=== PATIENT | female | born 1995 | race Caucasian/White ===

== ENCOUNTER 2019-08-04 06:53 | Inpatient (IN) | payer BC ==
[2019-08-04] MEDS ORDERED: Nalbuphine 10 MG/ML Syringe IVPUSH PRN (07:10)
[2019-08-04] MEDS ORDERED: Sodium Chloride 0.9% 10 ML Syringe FLUSH PRN (07:10)
[2019-08-04] MEDS ORDERED: Ondansetron 4 MG/2 ML SDV IVPUSH PRN (07:10)
--- NOTE | 2019-08-04 07:14 | PCM.LDHP ---
L&D History of Present Illness - General Date of Service: 08/04/19 Admit Problem/Dx: Patient Status Order with Admit Dx/Problem 08/04/19 07:11 Patient Status [ADT] Routine Admission Diagnosis/Problem Admission Diagnosis/Problem Normal in third trimester Source of Information: Patient History Limitations: Reports: No Limitations - History of Present Illness Introduction:: Patient is a 24 y/o at 40 0/7 wks who presents for IOL. Doing well today. Good FM. 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: 1 LMP (Approximate): Psychiatric History: Reports: Anxiety - Past Surgical History HEENT Surgical History: Reports: Adenoidectomy, Myringotomy w Tube(s), Oral Surgery (tooth extraction), Tonsillectomy Female Surgical History: Reports: Cystectomy (Right sided) Social & Family History - Family History Family Medical History: Noncontributory - Tobacco Use Smoking Status *Q: Never Smoker - Caffeine Use Caffeine Use: Reports: None - Alcohol Use Alcohol Use History: No - Recreational Drug Use Recreational Drug Use: No H&P Review of Systems - Review of Systems: Review Of Systems: See Below General: Reports: No Symptoms Pulmonary: Reports: No Symptoms Cardiovascular: Reports: No Symptoms Gastrointestinal: Reports: No Symptoms Genitourinary: Reports: No Symptoms Musculoskeletal: Reports: No Symptoms Psychiatric: Reports: No Symptoms Neurological: Reports: No Symptoms L&D Exam - Exam Exam: See Below - OB Specific Contraction Intensity: Irritability Movement: Active Heart Tones: Present Heart Rate (FHR) Variability: Moderate (6-25 bmp) Presentation: Vertex - Bolaños Score Bolaños Score Cervix Position: Midposition Bolaños Score Consistency: Soft Bolaños Score Effacement: 51-70% Bolaños Score Dilation: 3-4 cm Bolaños Score 's Station: -2 Bolaños Score Total: 8 - Exam General: Alert, Oriented, Cooperative Lungs: Clear to Auscultation, Normal Respiratory Effort Cardiovascular: Regular Rate, Regular Rhythm GI/Abdominal Exam: Soft, Non-Tender Genitourinary: Normal external exam Extremities: Normal Inspection Skin: Warm, Dry, Intact - Problem List (1) 40 weeks gestation of SNOMED Code(s): 50594678 ICD Code: Z3A.40 - 40 WEEKS GESTATION OF Status: Acute Current Visit: Yes Problem List Initiated/Reviewed/Updated: Yes Orders Last 24hrs: Active Orders 24 hr Category Date Time Status Patient Status [ADT] Routine ADT 08/04/19 07:11 Ordered Communication Order [RC] ASDIRECTED Care 08/04/19 07:11 Ordered Communication Order [RC] ASDIRECTED Care 08/04/19 07:11 Ordered Communication Order [RC] ASDIRECTED Care 08/04/19 07:11 Ordered Heart Tones [RC] ASDIRECTED Care 08/04/19 07:11 Ordered Non Stress Test [RC] PER UNIT ROUTINE Care 08/04/19 07:11 Ordered Notify Provider [RC] ASDIRECTED Care 08/04/19 07:11 Ordered Notify Provider [RC] PRN Care 08/04/19 07:11 Ordered Peripheral IV Care [RC] . DIRECTED Care 08/04/19 07:11 Ordered Up ad Rossy [RC] ASDIRECTED Care 08/04/19 07:11 Ordered Vaginal Exam [RC] ASDIRECTED Care 08/04/19 07:11 Ordered Vital Signs [RC] ASDIRECTED Care 08/04/19 07:11 Ordered Regular Diet [DIET] Diet 08/04/19 Breakfast Ordered CBC W/O DIFF,HEMOGRAM [HEME] Routine Lab 08/04/19 07:10 Ordered RAPID PLASMA REAGIN,RPR [CHEM] Routine Lab 08/04/19 07:11 Ordered TYPE AND SCREEN [BBK] Routine Lab 08/04/19 07:10 Ordered Lactated Ringers [Ringers, Lactated] 1,000 ml Med 08/04/19 07:15 Ordered IV ASDIRECTED Nalbuphine [Nubain] Med 08/04/19 07:10 Ordered 10 mg IVPUSH Q2H PRN Ondansetron [Zofran] Med 08/04/19 07:10 Ordered 4 mg IVPUSH Q4H PRN Oxytocin/Lactated Ringers [Pitocin in LR 10 Units/1,000 Med 08/04/19 07:15 Ordered ML] 10 unit in 1,000 ml IV .CONTINUOUS Oxytocin/Lactated Ringers [Pitocin in LR 10 Units/1,000 Med 08/04/19 07:15 Ordered ML] 10 unit in 1,000 ml IV TITRATE Sodium Chloride 0.9% [Saline Flush] Med 08/04/19 07:10 Ordered 10 ml FLUSH ASDIRECTED PRN Electronic Heart Tones Ext w TOCO [WOMSER] Ot 08/04/19 07:11 Ordered Routine Electronic Heart Tones Internal [WOMSER] Per Unit Ot 08/04/19 07:11 Ordered Routine Peripheral IV Insertion Adult [OM.PC] Routine Ot 08/04/19 07:11 Ordered Resuscitation Status Routine Resus Stat 08/04/19 07:10 Ordered Medication Orders Lactated Ringer's (Ringers, Lactated) 1,000 mls @ 40 mls/hr IV ASDIRECTED ARYAN Oxytocin/Lactated Ringer's (Pitocin In Lr 10 Units/1,000 Ml) 10 unit in 1,000 mls @ 12 mls/hr IV TITRATE ARYAN; Protocol Oxytocin/Lactated Ringer's (Pitocin In Lr 10 Units/1,000 Ml) 10 unit in 1,000 mls @ 500 mls/hr IV .CONTINUOUS ARYAN Nalbuphine HCl (Nubain) 10 mg IVPUSH Q2H PRN PRN Reason: Pain Ondansetron HCl (Zofran) 4 mg IVPUSH Q4H PRN PRN Reason: Nausea/Vomiting Sodium Chloride (Saline Flush) 10 ml FLUSH ASDIRECTED PRN PRN Reason: Keep Vein Open Assessment/Plan Comment:: * Labs done * GBS negative * AROM and pitocin for IOL * Pain management per patient preference * Anticipate
[2019-08-04] MEDS ORDERED: Oxytocin/Lactated Ringers 10 UNIT/1,000 ML BAG IV SCH ×2 (07:15)
[2019-08-04] MEDS ORDERED: ePHEDrine 50 MG/ML SDV IVPUSH PRN (07:30)
[2019-08-04] MEDS ORDERED: diphenhydrAMINE 50 MG/ML SDV IVPUSH PRN (07:30)
[2019-08-04] MEDS ORDERED: fentaNYL 100 MCG/2 ML SDV EPIDUR PRN (07:30)
[2019-08-04] MEDS ORDERED: Bupivacaine/fentaNYL/NS 100 ML Bag EPIDUR PRN (07:30)
[2019-08-04] MEDS: Lactated Ringers 1,000 ML IV SCH ×3 (07:44→14:07)
--- NOTE | 2019-08-04 08:07 | PCM.PREANE ---
Preanesthetic Assessment - Procedure Proposed Procedure: adriano - Anesthesia/Transfusion/Family Hx Anesthesia History: Prior Anesthesia Without Reaction Family History of Anesthesia Reaction: No Transfusion History: No Prior Transfusion(s) - Review of Systems General: No Symptoms Pulmonary: No Symptoms Cardiovascular: No Symptoms Gastrointestinal: No Symptoms Neurological: No Symptoms Other: Reports: Throat Pain (slight ear infection at this time- no meds) - Physical Assessment Vital Signs: Last Vital Signs Temp 98.1 F 08/04/19 07:11 Pulse 100 08/04/19 07:11 Resp 14 08/04/19 07:11 BP 127/68 08/04/19 07:11 Pulse Ox 98 08/04/19 07:11 Height: 5 ft 7 in Weight: 88.904 kg ASA Class: 2 Mental Status: Alert & Oriented x3 Airway Class: Mallampati = 1 Dentition: Reports: Normal Dentition Thyro-Mental Finger Breadths: 3 Mouth Opening Finger Breadths: 3 ROM/Head Extension: Full Lungs: Clear to Auscultation, Normal Respiratory Effort Cardiovascular: Regular Rate, Regular Rhythm - Lab Values: Laboratory Last Values WBC 8.69 K/mm3 (3.98-10.04) 08/04/19 07:20 RBC 3.63 M/mm3 (3.98-5.22) L 08/04/19 07:20 Hgb 11.0 gm/dl (11.2-15.7) L 08/04/19 07:20 Hct 34.1 % (34.1-44.9) 08/04/19 07:20 MCV 93.9 fl (79.4-94.8) 08/04/19 07:20 MCH 30.3 pg (25.6-32.2) 08/04/19 07:20 MCHC 32.3 g/dl (32.2-35.5) 08/04/19 07:20 RDW Std Deviation 44.3 fL (36.4-46.3) 08/04/19 07:20 Plt Count 217 K/mm3 (182-369) 08/04/19 07:20 MPV 9.1 fl (9.4-12.3) L 08/04/19 07:20 - Allergies Allergies/Adverse Reactions: Allergies Allergy/AdvReac Type Severity Reaction Status Date / Time No Known Allergies Allergy Verified 01/14/16 06:38 - Blood Blood Available: No - Acknowledgements Anesthesia Type Planned: Epidural Pt an Appropriate Candidate for the Planned Anesthesia: Yes Alternatives and Risks of Anesthesia Discussed w Pt/Guardian: Yes Pt/Guardian Understands and Agrees with Anesthesia Plan: Yes PreAnesthesia Questionnaire HEENT History: Reports: Other (See Below) Other HEENT History: Ear tubes placed in childhood Cardiovascular History: Reports: None Respiratory History: Reports: None Gastrointestinal History: Reports: None Genitourinary History: Reports: None 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 Musculoskeletal History: Reports: None Neurological History: Reports: None Psychiatric History: Reports: Anxiety Endocrine/Metabolic History: Reports: None Dermatologic History: Reports: None - Infectious Disease History Infectious Disease History: Reports: None - Past Surgical History HEENT Surgical History: Reports: Adenoidectomy, Myringotomy w Tube(s), Oral Surgery (tooth extraction), Tonsillectomy Female Surgical History: Reports: Cystectomy (Right sided) - History Comment History Comment: and an iron pills - SUBSTANCE USE Smoking Status *Q: Never Smoker Tobacco Use Within Last Twelve Months: No Second Hand Smoke Exposure: No Days Per Week of Alcohol Use: 0 Recreational Drug Use History: No - HOME MEDS Home Medications: Home Meds Acetaminophen [Tylenol] 650 mg PO Q4H PRN #0 tablet 03/14/16 [Rx] Docusate Sodium [Colace] 100 mg PO BID PRN #0 cap 03/14/16 [Rx] Ibuprofen [IJD: Ibuprofen] 600 mg PO Q4H PRN #0 tablet 03/14/16 [Rx] - CURRENT (IN HOUSE) MEDS Current Meds: Current Medications Diphenhydramine HCl (Benadryl) 25 mg IVPUSH Q6H PRN PRN Reason: Itching Ephedrine Sulfate (Ephedrine Sulfate) 5 mg IVPUSH ASDIRECTED PRN PRN Reason: HYPOTENTSION Fentanyl (Sublimaze) 100 mcg EPIDUR Q3H PRN PRN Reason: Pain Fentanyl/Bupivacaine HCl (Fentanyl/Bupivacaine/Ns 2 Mcg-0.125% 100 Ml) 100 ml EPIDUR CONTINUOUS PRN PRN Reason: Pain Lactated Ringer's (Ringers, Lactated) 1,000 mls @ 40 mls/hr IV ASDIRECTED RAYAN Last Admin: 08/04/19 07:44 Dose: 40 mls/hr Oxytocin/Lactated Ringer's (Pitocin In Lr 10 Units/1,000 Ml) 10 unit in 1,000 mls @ 12 mls/hr IV TITRATE ARYAN; Protocol Last Admin: 08/04/19 07:46 Dose: 2 munits/min, 12 mls/hr Oxytocin/Lactated Ringer's (Pitocin In Lr 10 Units/1,000 Ml) 10 unit in 1,000 mls @ 500 mls/hr IV .CONTINUOUS ARYAN Nalbuphine HCl (Nubain) 10 mg IVPUSH Q2H PRN PRN Reason: Pain Ondansetron HCl (Zofran) 4 mg IVPUSH Q4H PRN PRN Reason: Nausea/Vomiting Sodium Chloride (Saline Flush) 10 ml FLUSH ASDIRECTED PRN PRN Reason: Keep Vein Open
[2019-08-04] MEDS ORDERED: Lidocaine 1.5% with EPINEPHrine 1:200,000 5 ML Amp ONE (09:00)
--- NOTE | 2019-08-04 16:53 | PCM.DEL ---
L & D Note - General Info Date of Service: 08/04/19 - Delivery Note Labor: Induced by ARM, Induced by Oxytocin Delivery Outcome: Livebirth Infant Delivery Method: Spontaneous Vaginal Delivery-Single Infant Delivery Mode: Spontaneous Presentation: Right Occiput Anterior (CLAUDIA) (compound presentation with hand) Nuchal Cord: Present, Reduced Anesthesia Type: Epidural Amniotic Fluid Description: Clear Episiotomy Type: None Laceration: None Placenta: Intact, Spontaneous Cord: 3 Vessels Estimated Blood Loss: 100 Resuscitation Needed: Yes [place]: Bulb Syringe, Stimulated, Warmed, [place] Used Delivery Comments (Free Text/Narrative):: Patient found to be complete and patient began pushing. With maternal pushing effort head delivered from CLAUDIA presentation. Nuchal present an reduced. With gentle downward traction the shoulders and body delivered. placed on maternal abdomen. Cord clamped and cut. Cord blood obtained. Placenta allowed time to separate and expelled intact. No lacerations noted - General Info Date of Service: 08/04/19 - Patient Data Vitals - Most Recent: Last Vital Signs Temp 36.7 C 08/04/19 07:11 Pulse 100 08/04/19 07:11 Resp 14 08/04/19 07:11 BP 127/68 08/04/19 07:11 Pulse Ox 98 08/04/19 07:11 Weight - Most Recent: 88.904 kg I&O - Last 24 Hours: Intake & Output 08/04/19 08/04/19 08/04/19 06:59 14:59 22:59 Output Total 500 Balance -500 Lab Results Last 24 Hours: Laboratory Results - last 24 hr 08/04/19 08/04/19 Range/Units 07:20 07:20 WBC 8.69 (3.98-10.04) K/mm3 RBC 3.63 L (3.98-5.22) M/mm3 Hgb 11.0 L (11.2-15.7) gm/dl Hct 34.1 (34.1-44.9) % MCV 93.9 (79.4-94.8) fl MCH 30.3 (25.6-32.2) pg MCHC 32.3 (32.2-35.5) g/dl RDW Std Deviation 44.3 (36.4-46.3) fL Plt Count 217 (182-369) K/mm3 MPV 9.1 L (9.4-12.3) fl Blood Type A POSITIVE Gel Antibody Screen Negative Med Orders - Current: Current Medications Diphenhydramine HCl (Benadryl) 25 mg IVPUSH Q6H PRN PRN Reason: Itching Ephedrine Sulfate (Ephedrine Sulfate) 5 mg IVPUSH ASDIRECTED PRN PRN Reason: HYPOTENTSION Fentanyl (Sublimaze) 100 mcg EPIDUR Q3H PRN PRN Reason: Pain Last Admin: 08/04/19 11:54 Dose: 100 mcg Fentanyl/Bupivacaine HCl (Fentanyl/Bupivacaine/Ns 2 Mcg-0.125% 100 Ml) 100 ml EPIDUR CONTINUOUS PRN PRN Reason: Pain Last Admin: 08/04/19 11:54 Dose: 100 ml Lactated Ringer's (Ringers, Lactated) 1,000 mls @ 40 mls/hr IV ASDIRECTED ARYAN Last Admin: 08/04/19 14:07 Dose: 40 mls/hr Oxytocin/Lactated Ringer's (Pitocin In Lr 10 Units/1,000 Ml) 10 unit in 1,000 mls @ 12 mls/hr IV TITRATE ARYAN; Protocol Last Titration: 08/04/19 12:02 Dose: 6 munits/min, 36 mls/hr Oxytocin/Lactated Ringer's (Pitocin In Lr 10 Units/1,000 Ml) 10 unit in 1,000 mls @ 500 mls/hr IV .CONTINUOUS ARYAN Nalbuphine HCl (Nubain) 10 mg IVPUSH Q2H PRN PRN Reason: Pain Ondansetron HCl (Zofran) 4 mg IVPUSH Q4H PRN PRN Reason: Nausea/Vomiting Sodium Chloride (Saline Flush) 10 ml FLUSH ASDIRECTED PRN PRN Reason: Keep Vein Open - Problem List & Annotations (1) 40 weeks gestation of SNOMED Code(s): 43333123 Code(s): Z3A.40 - 40 WEEKS GESTATION OF Status: Acute Current Visit: Yes (2) Vaginal delivery SNOMED Code(s): 561145274 Code(s): O80 - ENCOUNTER FOR FULL-TERM UNCOMPLICATED DELIVERY Status: Acute Current Visit: No - Problem List Review Problem List Initiated/Reviewed/Updated: Yes - My Orders Last 24 Hours: My Active Orders 08/04/19 07:10 Nalbuphine [Nubain] 10 mg IVPUSH Q2H PRN Ondansetron [Zofran] 4 mg IVPUSH Q4H PRN Sodium Chloride 0.9% [Saline Flush] 10 ml FLUSH ASDIRECTED PRN Resuscitation Status Routine 08/04/19 07:11 Patient Status [ADT] Routine Communication Order [RC] ASDIRECTED Communication Order [RC] ASDIRECTED Communication Order [RC] ASDIRECTED Heart Tones [RC] ASDIRECTED Non Stress Test [RC] PER UNIT ROUTINE Notify Provider [RC] ASDIRECTED Notify Provider [RC] PRN Peripheral IV Care [RC] . DIRECTED Up ad Rossy [RC] ASDIRECTED Vaginal Exam [RC] ASDIRECTED Vital Signs [RC] ASDIRECTED Electronic Heart Tones Ext w TOCO [WOMSER] Routine Electronic Heart Tones Internal [WOMSER] Per Unit Routine Peripheral IV Insertion Adult [OM.PC] Routine 08/04/19 07:15 Lactated Ringers [Ringers, Lactated] 1,000 ml IV ASDIRECTED Oxytocin/Lactated Ringers [Pitocin in LR 10 Units/1,000 ML] 10 unit in 1,000 ml IV .CONTINUOUS Oxytocin/Lactated Ringers [Pitocin in LR 10 Units/1,000 ML] 10 unit in 1,000 ml IV TITRATE 08/04/19 07:20 RAPID PLASMA REAGIN,RPR [CHEM] Routine 08/04/19 Breakfast Regular Diet [DIET] - Assessment Assessment:: PPD#0 - Plan Plan:: * Routine cares * Breast feeding * Discharge home in 1-2 days
[2019-08-04] MEDS ORDERED: Docusate Sodium 100 MG Cap PO PRN (17:20)
[2019-08-04] MEDS ORDERED: Benzocaine/Menthol 20%-0.5% Spray 56 GM Canister TOP PRN (17:20)
[2019-08-04] MEDS ORDERED: Acetaminophen 325 MG Tab PO PRN (17:20)
[2019-08-04] MEDS ORDERED: Ibuprofen 600 MG Tab PO PRN (17:20)
[2019-08-04] MEDS ORDERED: Witch Hazel Medicated Pads 40/Jar TOP PRN (17:20)
[2019-08-05 04:24] VITALS: BP 106/59
--- NOTE | 2019-08-05 09:47 | PCM.SN ---
- Free Text/Narrative Note: Post Progress Note PPD #1 Subjective: Doing well overall. Ambulating without difficulty. Lochia minimal. Voiding without difficulty. Tolerating regular diet without nausea or vomiting. Pain controlled without use of oral medications at this time. Breast-feeding with minimal difficulty. Objective: Vitals: Vital Signs - 24 hr 08/04/19 08/05/19 20:06 03:34 Temperature 36.8 C 36.6 C Pulse, 76 81 Peripheral Respiratory 14 14 Rate Blood Pressure 111/60 106/59 L O2 Sat by Pulse 97 97 Oximetry Physical Exam General: Alert and oriented, no acute distress Lungs: Clear to auscultation bilaterally Heart: Regular rate and rhythm Abdomen: Soft, minimal appropriate tenderness, non-distended, fundus midline, nontender, and at the umbilicus Extremities: No edema ASSESSMENT: 24-year-old female -0-0-2 s/p normal vaginal delivery PPD #1 PLAN: Doing well Breast-feeding with minimal difficulty. Assist as needed Lochia minimal. Continue to monitor for appropriate lochia. Continue routine care Anticipate discharge home today Steve Rivera MD 9:47 AM 08/05/2019 TeleHealth - TeleHealth Patient Service Facility: [facility]: [facility] Informed Consent: Telemedicine Audio/Visual Informed Consent: The risks, benefits, and alternatives to the telehealth visit were explained to the patient and the patient consented to this modality of care. The telehealth visit was carried out via a secure, web-based conferencing system. This telemedicine service was a real-time, two-way interactive video and communication between the patient and the provider. All the parties involved were identified and approved by the patient prior to the visit. Any physical exam was assisted by the patient. Unless noted otherwise, the provider was located at their usual clinic location , and the patient was at their place of residence. Patient identity was confirmed by having the patient state their name and date of . All communications with the patient (verbal, audiovisual, and written) were documented in the patients medical record per documentation standards.
--- NOTE | 2019-08-05 09:55 | PCM.DCSUM1 ---
Discharge Summary - Hospital Course Free Text/Narrative:: - Delivery Note Labor: Induced by ARM, Induced by Oxytocin Delivery Outcome: Livebirth Infant Delivery Method: Spontaneous Vaginal Delivery-Single Infant Delivery Mode: Spontaneous Presentation: Right Occiput Anterior (CLAUDIA) (compound presentation with hand) Nuchal Cord: Present, Reduced Anesthesia Type: Epidural Amniotic Fluid Description: Clear Episiotomy Type: None Laceration: None Placenta: Intact, Spontaneous Cord: 3 Vessels Estimated Blood Loss: 100 Resuscitation Needed: Yes [place]: Bulb Syringe, Stimulated, Warmed, [place] Used Delivery Comments (Free Text/Narrative):: Patient found to be complete and patient began pushing. With maternal pushing effort head delivered from CLAUDIA presentation. Nuchal present an reduced. With gentle downward traction the shoulders and body delivered. Infant placed on maternal abdomen. Cord clamped and cut. Cord blood obtained. Placenta allowed time to separate and expelled intact. No lacerations noted HPI Initial Comments: - Delivery Note Labor: Induced by ARM, Induced by Oxytocin Delivery Outcome: Livebirth Infant Delivery Method: Spontaneous Vaginal Delivery-Single Infant Delivery Mode: Spontaneous Presentation: Right Occiput Anterior (CLAUDIA) (compound presentation with hand) Nuchal Cord: Present, Reduced Anesthesia Type: Epidural Amniotic Fluid Description: Clear Episiotomy Type: None Laceration: None Placenta: Intact, Spontaneous Cord: 3 Vessels Estimated Blood Loss: 100 Resuscitation Needed: Yes [place]: Bulb Syringe, Stimulated, Warmed, [place] Used Delivery Comments (Free Text/Narrative):: Patient found to be complete and patient began pushing. With maternal pushing effort head delivered from CLAUDIA presentation. Nuchal present an reduced. With gentle downward traction the shoulders and body delivered. placed on maternal abdomen. Cord clamped and cut. Cord blood obtained. Placenta allowed time to separate and expelled intact. No lacerations noted Brief History: - Delivery Note. Labor: Induced by ARM, Induced by Oxytocin. Delivery Outcome: Livebirth. Delivery Method: Spontaneous Vaginal Delivery-Single. Delivery Mode: Spontaneous. Presentation: Right Occiput Anterior (CLAUDIA) (compound presentation with hand). Nuchal Cord: Present, Reduced. Anesthesia Type: Epidural. Amniotic Fluid Description: Clear. Episiotomy Type: None. Laceration: None. Placenta: Intact, Spontaneous. Cord: 3 Vessels. Estimated Blood Loss: 100. Resuscitation Needed : Yes. [place]: Bulb Syringe, Stimulated, Warmed, [place] Used. Delivery Comments (Free Text/Narrative):: Patient found to be complete and patient began pushing. With maternal pushing effort head delivered from CLAUDIA presentation. Nuchal present an reduced. With gentle downward traction the shoulders and body delivered. Infant placed on maternal abdomen. Cord clamped and cut. Cord blood obtained. Placenta allowed time to separate and expelled intact. No lacerations noted Diagnosis: Stroke: No - Discharge Data Discharge Date: 08/05/19 Discharge Disposition: Home, Self-Care 01 Condition: Good - Referral to Home Health Primary Care Physician: MARIO Dykes - Discharge Diagnosis/Problem(s) (1) 40 weeks gestation of SNOMED Code(s): 94293613 ICD Code: Z3A.40 - 40 WEEKS GESTATION OF Status: Acute Current Visit: Yes (2) Vaginal delivery SNOMED Code(s): 247398016 ICD Code: O80 - ENCOUNTER FOR FULL-TERM UNCOMPLICATED DELIVERY Status: Acute Current Visit: No - Patient Summary/Data Complications: None Consults: None Hospital Course: Vandana Stearns was admitted for elective induction of labor. On admission her cervix was dilated to 3-4 cm. She was GBS negative. She was given pitocin for induction of labor. She had artificial rupture membranes with return of clear fluid. She was given an epidural for anesthesia. She progressed to complete and began pushing. On 08/04/2019 she had a normal vaginal delivery of a live male at 16:39. Apgars of 8 and 9. Weight of 4240 g (9 pounds 5.6 ounces ). Her course was uneventful. Her pain was well controlled and she had minimal lochia. She was ambulating, tolerating a regular diet and voiding normally. She was breast-feeding with minimal difficulty. She was afebrile and her hematocrit was 34.1 on admission. She desired to be discharged home on the morning of PPD #1. Her blood type is A+. - Patient Instructions Diet: Regular Diet as Tolerated Activity: Apply Ice, As Tolerated Activity, Other: Nothing in the vagina for 6 weeks Driving: May Drive Today Showering/Bathing: May Shower Notify Provider of: Fever, Increased Pain, Swelling and Redness, Drainage, Nausea and/or Vomiting Other/Special Instructions: Please contact your physician's office if you have heavy vaginal bleeding enough to soak a pad in less than an hour for several hours. Monitor for any signs of an infection in the breasts with severe pain or redness of the breast. - Discharge Plan *PRESCRIPTION DRUG MONITORING PROGRAM REVIEWED*: Not Applicable *COPY OF PRESCRIPTION DRUG MONITORING REPORT IN PATIENT SANJU: Not Applicable Home Medications: Home Meds Iron 1 tab PO DAILY 08/04/19 [History] EMM523/Iron Fumarate/FA/DSS [ 19 Tablet] 1 each PO DAILY 08/04/19 [ History] Acetaminophen [Tylenol] 650 mg PO Q6H PRN tablet 08/05/19 [Rx] Benzocaine/Menthol [Dermoplast Pain Relief [place]] 1 spray TOP ASDIRECTED PRN canister 08/05/19 [Rx] Docusate Sodium [Colace] 100 mg PO BID PRN cap 08/05/19 [Rx] Ibuprofen [Motrin] 600 mg PO Q6H PRN tablet 08/05/19 [Rx] witch Sofie [Tucks] 1 pad TOP ASDIRECTED PRN pad 08/05/19 [Rx] Patient Handouts: and Self-Care, Care After Vaginal Delivery Referrals: Mami Patterson MD [Family Provider] - (Follow-up in 6 weeks for routine visit or earlier as needed for any other problems as they may arise.) - Discharge Summary/Plan Comment DC Time >30 min.: No - Patient Data Vitals - Most Recent: Last Vital Signs Temp 36.6 C 08/05/19 03:34 Pulse 81 08/05/19 03:34 Resp 14 08/05/19 03:34 BP 106/59 L 08/05/19 03:34 Pulse Ox 97 08/05/19 03:34 Weight - Most Recent: 88.904 kg I&O - Last 24 hours: Intake & Output 08/04/19 08/05/19 08/05/19 22:59 06:59 14:59 Output Total 500 Balance -500 Lab Results - Last 24 hrs: Laboratory Results - last 24 hr 08/04/19 Range/Units 07:20 RPR Non-reactive (NONREACTIVE) Med Orders - Current: Current Medications Acetaminophen (Tylenol) 650 mg PO Q4H PRN PRN Reason: mild pain or fever Benzocaine/Menthol (Dermoplast Pain Relief [place]) 0 gm TOP ASDIRECTED PRN PRN Reason: Perineal Comfort Measure Last Admin: 08/04/19 18:00 Dose: 1 can Docusate Sodium (Colace) 100 mg PO BID PRN PRN Reason: Constipation Ibuprofen (Motrin) 600 mg PO Q6H PRN PRN Reason: Mild pain or fever Witch Sofie (Tucks) 1 pad TOP ASDIRECTED PRN PRN Reason: Perineal Comfort Measure Last Admin: 08/04/19 17:59 Dose: 1 tub Discontinued Medications Diphenhydramine HCl (Benadryl) 25 mg IVPUSH Q6H PRN PRN Reason: Itching Ephedrine Sulfate (Ephedrine Sulfate) 5 mg IVPUSH ASDIRECTED PRN PRN Reason: HYPOTENTSION Fentanyl (Sublimaze) 100 mcg EPIDUR Q3H PRN PRN Reason: Pain Last Admin: 08/04/19 11:54 Dose: 100 mcg Fentanyl/Bupivacaine HCl (Fentanyl/Bupivacaine/Ns 2 Mcg-0.125% 100 Ml) 100 ml EPIDUR CONTINUOUS PRN PRN Reason: Pain Last Admin: 08/04/19 11:54 Dose: 100 ml Lactated Ringer's (Ringers, Lactated) 1,000 mls @ 40 mls/hr IV ASDIRECTED ARYAN Last Admin: 08/04/19 14:07 Dose: 40 mls/hr Oxytocin/Lactated Ringer's (Pitocin In Lr 10 Units/1,000 Ml) 10 unit in 1,000 mls @ 12 mls/hr IV TITRATE ARYAN; Protocol Last Titration: 08/04/19 16:40 Dose: 999 munits/min, 5,994 mls/hr Oxytocin/Lactated Ringer's (Pitocin In Lr 10 Units/1,000 Ml) 10 unit in 1,000 mls @ 500 mls/hr IV .CONTINUOUS ARYAN Last Admin: 08/04/19 17:16 Dose: 500 mls/hr Lidocaine/Epinephrine (Xylocaine-Mpf 1.5% W/Epinephrine 1:200,000) 5 ml .ROUTE .STK-MED ONE Stop: 08/04/19 09:01 Nalbuphine HCl (Nubain) 10 mg IVPUSH Q2H PRN PRN Reason: Pain Ondansetron HCl (Zofran) 4 mg IVPUSH Q4H PRN PRN Reason: Nausea/Vomiting Sodium Chloride (Saline Flush) 10 ml FLUSH ASDIRECTED PRN PRN Reason: Keep Vein Open
[2019-08-05 12:20] VITALS: PULSE 98
== END 2019-08-05 17:00 | disposition home or self-care (01) | DRG 560 ==
LOC: JD.OB 06:53 → OBSVTOIN 16:39 → JD.OB 16:39
PROVIDERS: ADMIT Obstetrics & Gynecology; ATTEND Obstetrics & Gynecology
PROC: 10E0XZZ Delivery of Products of Conception, External Approach (ICD-10-PCS; principal; 2019-08-04)
PROC: 10907ZC Drainage of Amniotic Fluid, Therapeutic from Products of Conception, Via Natural or Artificial Opening (ICD-10-PCS; 2019-08-04)
PROC: 3E0R3BZ Introduction of Anesthetic Agent into Spinal Canal, Percutaneous Approach (ICD-10-PCS; 2019-08-04)
PROC: 00HU33Z Insertion of Infusion Device into Spinal Canal, Percutaneous Approach (ICD-10-PCS; 2019-08-04)
DX: O48.0 Post-term pregnancy (principal); Z37.0 Single live birth; O69.81X0 Labor and delivery complicated by cord around neck, without compression, not applicable or unspecified; Z3A.40 40 weeks gestation of pregnancy
CPT/HCPCS: 01967; 36415; 51702; 59025; 59409; 85027; 86592; 86850; 86900; 86901; A9270-GY; J2590; J3010; J7120

== ENCOUNTER 2020-09-07 08:40 | Emergency (ER) | payer BC ==
--- NOTE | 2020-09-07 09:46 | EDM.PDOC ---
ED HPI GENERAL MEDICAL PROBLEM - General Chief Complaint: Abdominal Pain Stated Complaint: SINUS CONGESTION/ABD PAIN Time Seen by Provider: 09/07/20 08:55 Source of Information: Reports: Patient, Family History Limitations: Reports: No Limitations - History of Present Illness INITIAL COMMENTS - FREE TEXT/NARRATIVE: Patient presents from urgent care for evaluation of abdominal pain. She is approximately 6 weeks . This is her fourth she has 2 living children and had a miscarriage in July and currently is not complaining of any vaginal bleeding or vaginal discharge no fevers chills or sweats no nausea or vomiting. No diarrhea or constipation no burning pain or bloody urine. She mainly is here that she had a lot of sinus congestion developed on Wednesday and developed postnasal drainage and then developed a productive cough no bloody cough however noted. Non-smoker no history of any lung disease has had sinus and ear problems in the past. She had a tonsillectomy when she was a child along with the PE tubes placed when she was young. No allergies that are seasonal no allergies to medications. She feels like anytime she has been coughing hard now she has pain across the abdominal wall. Reproducible with palpation and movement and definitely hurts when she tries to do a sit up. She has not really tried any Tylenol or any medications [id number] for pain at present. No injury or fall noted. Denies any other deeper abdominal pain no flank pain. No extremity swelling. Tight is normal Covid is negative per visit at the urgent care and I discussed the case with the urgent care provider prior to arrival. 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 Middle Abdomen Pain Score (Numeric/FACES): 5 - Related Data Allergies Allergy/AdvReac Type Severity Reaction Status Date / Time No Known Allergies Allergy Verified 09/07/20 09:07 Home Meds: Home Meds Prenat 115/Iron Fum/Folic/Dss [ 19 Tablet] 1 each PO DAILY 08/04/19 [History] Amoxicillin 500 mg PO TID #21 capsule 09/07/20 [Rx] Past Medical History HEENT History: Reports: Impaired Vision, Sinusitis, Other (See Below) Other HEENT History: Ear tubes placed in childhood, wears eyeglasses. 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 Musculoskeletal History: Reports: None Neurological History: Reports: Head Trauma Psychiatric History: Reports: Anxiety Endocrine/Metabolic History: Reports: None Dermatologic History: Reports: None - Infectious Disease History Infectious Disease History: Reports: Chicken Pox - Past Surgical History HEENT Surgical History: Reports: Adenoidectomy, Myringotomy w Tube(s), Oral Surgery, Tonsillectomy Female Surgical History: Reports: Cystectomy - History Comment History Comment: and an iron pills Social & Family History - Family History Family Medical History: No Pertinent Family History - Tobacco Use Tobacco Use Status *Q: Never Tobacco User Second Hand Smoke Exposure: No - Caffeine Use Caffeine Use: Reports: None - Recreational Drug Use Recreational Drug Use: No ED ROS GENERAL - Review of Systems Review Of Systems: See Below Constitutional: Denies: Fever, Chills, Diaphoresis HEENT: Reports: Nose Pain, Rhinitis, Sinus Problem. Denies: Ear Pain, Eye Pain, Nosebleed, Throat Pain, Throat Swelling Respiratory: Reports: Cough. Denies: Shortness of Breath, Wheezing Cardiovascular: Denies: Chest Pain, Edema, Lightheadedness, Syncope GI/Abdominal: Reports: Abdominal Pain. Denies: Anorexia, Bloody Stool, Constipation, Diarrhea, Decreased Appetite, Distension, Hematemesis, Hematochezia, Melena, Nausea, Vomiting : Denies: Dysuria, Flank Pain, Frequency, Hematuria, Irregular Menses, Urinary Retention (No abnormal vaginal bleeding or vaginal discharge) Musculoskeletal: Denies: Neck Pain, Muscle Pain Neurological: Reports: No Symptoms. Denies: Dizziness, Headache Psychiatric: Reports: No Symptoms ED EXAM, GI/ABD - Physical Exam Exam: See Below Exam Limited By: No Limitations General Appearance: Alert, WD/WN, No Apparent Distress Eyes: Bilateral: Pale Conjunctiva Ears: Normal External Exam, Normal Canal, Normal TMs Nose: Normal Inspection, Nasal Tenderness, Nasal Swelling, Other Throat/Mouth: Normal Oropharynx Head: Atraumatic Neck: Normal Inspection, Lymphadenopathy (L), Lymphadenopathy (R) Respiratory/Chest: No Respiratory Distress, Lungs Clear, Normal Breath Sounds, No Accessory Muscle Use, Chest Non-Tender Cardiovascular: Normal Peripheral Pulses, Regular Rate, Rhythm, No Edema GI/Abdominal Exam: Normal Bowel Sounds, Soft, No Organomegaly, No Distention, No Mass, Tender. No: Distended (Reproducible abdominal wall tenderness especially with stress or strain of her abdominal musculature does not have any deeper pain no masses no distention deafly no McBurney's point tenderness the right lower quadrant pain is more diffuse generalized in the upper abdomen no pelvic pain.), Guarding, Rigid, Rebound, Abnormal Bowel Sounds Extremities: No Pedal Edema Neurological: Alert, Oriented, CN II-XII Intact Psychiatric: Normal Affect Course - Vital Signs Text/Narrative:: I believe this is more of a muscular strain of her abdominal wall and is not having any pelvic cramping no vaginal discharge or bleeding or lightheadedness no fevers seems very unlikely acute appendicitis or cholecystitis no urinary symptoms doubt urinary tract infection seen by get onset of symptoms started with coughing and sinus congestion. We will have her start with [id number] remedies we will give her a prescription for Flonase, Tylenol for pain Robitussin for cough may try Benadryl if needed for congestion otherwise abdominal binder to see if that helps to prevent the strain of her muscles when she coughs and moves. Reviewed abdominal pain return precautions especially if any vaginal bleeding abdominal cramping fevers vomiting loss of appetite or multifocal pain. Last Recorded V/S: Last Vital Signs Temp 98.2 F 09/07/20 10:00 Pulse 77 09/07/20 10:00 Resp 16 09/07/20 10:00 BP 114/67 09/07/20 10:00 Pulse Ox 97 09/07/20 10:00 Departure - Departure Time of Disposition: 10:00 Disposition: Home, Self-Care 01 Condition: Good Clinical Impression: Abdominal pain Qualifiers: Abdominal location: generalized Qualified Code(s): R10.84 - Generalized abdominal pain Sinusitis, acute Qualifiers: Sinusitis location: unspecified location Recurrence: non-recurrent Qualified Code(s): J01.90 - Acute sinusitis, unspecified - Discharge Information Prescriptions: Amoxicillin 500 mg PO TID #21 capsule Instructions: Sinusitis, Adult, [id number], Abdominal Pain, Adult, [id number], Abdominal Pain During Referrals: Sonia Aponte PA-C [Primary Care Provider] - Forms: ED Department Discharge Additional Instructions: May use Tylenol for pain abdominal binder to help to decrease the pain and strain of coughing and bending and straining. Try to avoid excessive bending lifting and straining. Robitussin for the cough, may try Benadryl for the congestion I do recommend Flonase 1 to 2 sprays each nostril at least once a day as you have inflammation of your sinus passages. Drink plenty of water and fluids. Follow-up with your primary care physician and her B[employer]LING [employer] DESK CLERK. Return if any increasing pain, vomiting, fevers, vaginal bleeding, cramping, vaginal discharge, loss of appetite or any worsening symptoms. Start amoxicillin 500 mg 3 times a day for 10 days if not getting better with your sinus congestion cough and upper respiratory infection symptoms. Sepsis Event Note (ED) - Evaluation Sepsis Screening Result: No Definite Risk - Focused Exam Vital Signs: Vital Signs Temp Pulse Resp BP Pulse Ox 09/07/20 10:00 98.2 F 77 16 114/67 97 09/07/20 08:55 99.4 F 78 16 113/69 98
[2020-09-07 10:11] VITALS: BP 114/67; PULSE 77
== END 2020-09-07 10:00 | disposition home or self-care (01) ==
LOC: JD.ED 08:40
DX: O99.891 Other specified diseases and conditions complicating pregnancy (principal); R10.84 Generalized abdominal pain; O99.511 Diseases of the respiratory system complicating pregnancy, first trimester; J01.90 Acute sinusitis, unspecified; Z3A.01 Less than 8 weeks gestation of pregnancy
CPT/HCPCS: 99283

== ENCOUNTER 2021-04-30 01:36 | Inpatient (IN) | payer BC ==
[2021-04-30] MEDS ORDERED: Lidocaine 1% 50 ML MDV INJECT ONE (01:46)
[2021-04-30] MEDS ORDERED: Nalbuphine 10 MG/1 ML Vial IVPUSH PRN (01:46)
[2021-04-30] MEDS ORDERED: Ondansetron 4 MG/2 ML SDV IVPUSH PRN (01:46)
[2021-04-30] MEDS ORDERED: Lactated Ringers 1,000 ML IV SCH (02:00)
[2021-04-30] MEDS ORDERED: Oxytocin/Lactated Ringers 10 UNIT/1,000 ML BAG IV SCH (02:00)
[2021-04-30] MEDS ORDERED: Oxytocin 10 Units/1 ML SDV ONE (02:13)
--- NOTE | 2021-04-30 02:27 | PCM.LDHP ---
L&D History of Present Illness - General Date of Service: 04/30/21 Admit Problem/Dx: Patient Status Order with Admit Dx/Problem 04/30/21 01:46 Patient Status [ADT] Routine Admission Diagnosis/Problem Admission Diagnosis/Problem Active labor Source of Information: Patient History Limitations: Reports: No Limitations - History of Present Illness Introduction:: Patient is a 26 y/o at 39 5/7 wks who presented to L&D complete with BBOW. Contractions started at 2200. Worse the last hour. - Related Data Allergies/Adverse Reactions: Allergies Allergy/AdvReac Type Severity Reaction Status Date / Time No Known Allergies Allergy Verified 04/30/21 05:42 Home Medications: Home Meds Prenat 115/Iron Fum/Folic/Dss [ 19 Tablet] 1 each PO DAILY 08/04/19 [History] Ondansetron [Zofran] 1 tab PO DAILY 04/30/21 [History] Sertraline HCl [Zoloft] 1 tab PO DAILY 04/30/21 [History] Past Medical History HEENT History: Reports: Impaired Vision, Sinusitis, Other (See Below) Other HEENT History: Ear tubes placed in childhood, wears eyeglasses. 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: , Spontaneous : 4 Para: 2 LMP (Approximate): Neurological History: Reports: Head Trauma Psychiatric History: Reports: Anxiety - Infectious Disease History Infectious Disease History: Reports: Chicken Pox - Past Surgical History HEENT Surgical History: Reports: Adenoidectomy, Myringotomy w Tube(s), Oral Surgery, Tonsillectomy Female Surgical History: Reports: Cystectomy Social & Family History - Family History Family Medical History: No Pertinent Family History - Tobacco Use Tobacco Use Status *Q: Never Tobacco User - Caffeine Use Caffeine Use: Reports: None - Alcohol Use Alcohol Use History: No - Recreational Drug Use Recreational Drug Use: No H&P Review of Systems - Review of Systems: Review Of Systems: See Below General: Reports: No Symptoms Pulmonary: Reports: No Symptoms Cardiovascular: Reports: No Symptoms Gastrointestinal: Reports: Abdominal Pain Genitourinary: Reports: No Symptoms Musculoskeletal: Reports: No Symptoms Psychiatric: Reports: No Symptoms Neurological: Reports: No Symptoms L&D Exam - Exam Exam: See Below - OB Specific Contraction Intensity: Strong Movement: Active Heart Tones: Present Heart Tones per Min: 150 Heart Rate (FHR) Variability: Moderate (6-25 bpm) Presentation: Vertex - Bolaños Score Bolaños Score Cervix Position: Anterior Bolaños Score Consistency: Soft Bolaños Score Effacement: >80% Bolaños Score Dilation: > 5 cm Bolaños Score 's Station: -1 ,0 Bolaños Score Total: 12 - Exam General: Alert, Oriented, Cooperative Lungs: Clear to Auscultation, Normal Respiratory Effort Cardiovascular: Regular Rate, Regular Rhythm GI/Abdominal Exam: Soft, Non-Tender Genitourinary: Normal external exam Extremities: Normal Inspection Skin: Warm, Dry, Intact - Problem List (1) 39 weeks gestation of SNOMED Code(s): 01024286 ICD Code: Z3A.39 - 39 WEEKS GESTATION OF Status: Acute Current Visit: No Problem List Initiated/Reviewed/Updated: Yes Orders Last 24hrs: Active Orders 24 hr Category Date Time Status Patient Status [ADT] Routine ADT 04/30/21 01:46 Active Activity as Tolerated [RC] PFP Care 04/30/21 01:46 Active Communication Order [RC] ASDIRECTED Care 04/30/21 01:46 Active Heart Tones [RC] ASDIRECTED Care 04/30/21 01:46 Active Non Stress Test [RC] PER UNIT ROUTINE Care 04/30/21 01:46 Active Notify Provider [RC] PFP Care 04/30/21 01:46 Active Notify Provider [RC] PRN Care 04/30/21 01:46 Active Peripheral IV Care [RC] . DIRECTED Care 04/30/21 01:46 Active Pump Management, Intrathecal [RC] ASDIRECTED Care 04/30/21 01:47 Active Urinary Catheter Assessment [RC] ASDIRECTED Care 04/30/21 01:46 Active Vital Signs [RC] PER UNIT ROUTINE Care 04/30/21 01:46 Active Regular Diet [DIET] Diet 04/30/21 Breakfast Active BLOOD BANK HOLD SPECIMEN [BBK] Stat Lab 04/30/21 01:46 Ordered CBC WITH AUTO DIFF [HEME] Stat Lab 04/30/21 01:46 Ordered CORONAVIRUS COVID-19 CHRIS [MOLEC] Stat Lab 04/30/21 01:49 Ordered RAPID PLASMA REAGIN,RPR [CHEM] Routine Lab 04/30/21 01:46 Ordered Lactated Ringers [Ringers, Lactated] 1,000 ml Med 04/30/21 02:00 Active IV ASDIRECTED Nalbuphine [Nubain] Med 04/30/21 01:46 Active 10 mg IVPUSH Q2H PRN Ondansetron [Zofran] Med 04/30/21 01:46 Active 4 mg IVPUSH Q4H PRN Oxytocin/Lactated Ringers [Pitocin in LR 10 Units/1,000 Med 04/30/21 02:00 Active ML] 10 unit in 1,000 ml IV .CONTINUOUS Sodium Chloride 0.9% [Saline Flush] Med 04/30/21 09:00 Active 10 ml FLUSH 0900,2100 Electronic Heart Tones Ext w TOCO [WOMSER] Oth 04/30/21 01:46 Ordered Routine Electronic Heart Tones Internal [WOMSER] Per Unit Ot 04/30/21 01:46 Ordered Routine Peripheral IV Insertion Adult [OM.PC] Routine Ot 04/30/21 01:46 Ordered Resuscitation Status Routine Resus Stat 04/30/21 01:46 Ordered Medication Orders Oxytocin/Lactated Ringer's (Pitocin In Lr 10 Units/1,000 Ml) 10 unit in 1,000 m ls @ 500 mls/hr IV .CONTINUOUS ARYAN Lactated Ringer's (Ringers, Lactated) 1,000 mls @ 100 mls/hr IV ASDIRECTED ARYAN Nalbuphine HCl (Nalbuphine 10 Mg/1 Ml Vial) 10 mg IVPUSH Q2H PRN PRN Reason: Pain Ondansetron HCl (Ondansetron 4 Mg/2 Ml Sdv) 4 mg IVPUSH Q4H PRN PRN Reason: Nausea/Vomiting Sodium Chloride (Sodium Chloride 0.9% 10 Ml Syringe) 10 ml FLUSH 0900,2100 [facility] Assessment/Plan Comment:: Presents to L&D complete with BBOW . GBS negative . AROM done . Delivery imminent
--- NOTE | 2021-04-30 02:29 | PCM.DEL ---
L & D Note - General Info Date of Service: 04/30/21 - Delivery Note Labor: Spontaneous Delivery Outcome: Livebirth Delivery Method: Spontaneous Vaginal Delivery-Single Delivery Mode: Spontaneous Presentation: Right Occiput Anterior (CLAUDIA) Nuchal Cord: Present, Reduced Anesthesia Type: None Amniotic Fluid Description: Clear Episiotomy Type: None Laceration: None Placenta: Intact, Spontaneous Cord: 3 Vessels Estimated Blood Loss: 100 Resuscitation Needed: Yes : Bulb Syringe, Stimulated, Warmed, [place] Used, Warmer Used Delivery Comments (Free Text/Narrative):: Patient found to be complete and began pushing. With maternal pushing effort head delivered from an CLAUDIA presentation. Nuchal cord present and reduced. With gentle downward traction the shoulders and body delivered. placed on maternal abdomen. Cord clamped and cut. Cord blood obtained. P lacenta allowed time to separate and expelled intact. Inspection of perineum with no lacerations - General Info Date of Service: 04/30/21 - Problem List & Annotations (1) 39 weeks gestation of SNOMED Code(s): 46966716 Code(s): Z3A.39 - 39 WEEKS GESTATION OF Status: Acute Current Visit: No (2) Vaginal delivery SNOMED Code(s): 108657220 Code(s): O80 - ENCOUNTER FOR FULL-TERM UNCOMPLICATED DELIVERY Status: Acute Current Visit: No - Problem List Review Problem List Initiated/Reviewed/Updated: Yes - My Orders Last 24 Hours: My Active Orders 04/30/21 01:46 Patient Status [ADT] Routine Activity as Tolerated [RC] PFP Communication Order [RC] ASDIRECTED Heart Tones [RC] ASDIRECTED Non Stress Test [RC] PER UNIT ROUTINE Notify Provider [RC] PFP Notify Provider [RC] PRN Peripheral IV Care [RC] . DIRECTED Urinary Catheter Assessment [RC] ASDIRECTED Vital Signs [RC] PER UNIT ROUTINE BLOOD BANK HOLD SPECIMEN [BBK] Stat CBC WITH AUTO DIFF [HEME] Stat RAPID PLASMA REAGIN,RPR [CHEM] Routine Nalbuphine [Nubain] 10 mg IVPUSH Q2H PRN Ondansetron [Zofran] 4 mg IVPUSH Q4H PRN Electronic Heart Tones Ext w TOCO [WOMSER] Routine Electronic Heart Tones Internal [WOMSER] Per Unit Routine Peripheral IV Insertion Adult [OM.PC] Routine Resuscitation Status Routine 04/30/21 01:47 Pump Management, Intrathecal [RC] ASDIRECTED 04/30/21 01:49 CORONAVIRUS COVID-19 CHRIS [MOLEC] Stat 04/30/21 02:00 Lactated Ringers [Ringers, Lactated] 1,000 ml IV ASDIRECTED Oxytocin/Lactated Ringers [Pitocin in LR 10 Units/1,000 ML] 10 unit in 1,000 ml IV .CONTINUOUS 04/30/21 02:27 Patient Status Manage Transfer [TRANSFER] Routine 04/30/21 Breakfast Regular Diet [DIET] 04/30/21 09:00 Sodium Chloride 0.9% [Saline Flush] 10 ml FLUSH 0900,2100 - Assessment Assessment:: PPD#0 - Plan Plan:: * Routine cares * Breast feeding * Discharge in 1-2 days
[2021-04-30] MEDS ORDERED: Docusate Sodium 100 MG Cap PO PRN (03:00)
[2021-04-30] MEDS ORDERED: Benzocaine/Menthol 20%-0.5% Spray 78 GM Cannister TOP PRN (03:00)
[2021-04-30] MEDS ORDERED: Witch Hazel Medicated Pads 40/Jar TOP PRN (03:00)
[2021-04-30] MEDS ORDERED: Acetaminophen 325 MG Tab PO PRN (03:00)
[2021-04-30] MEDS ORDERED: Sodium Chloride 0.9% 10 ML Syringe FLUSH SCH (09:00)
[2021-04-30] MEDS: Sertraline 50 MG Tab PO SCH (09:33)
[2021-04-30] MEDS: Ibuprofen 600 MG Tab PO PRN ×2 (09:33→21:05)
--- NOTE | 2021-05-01 02:15 | PCM.PNPP ---
- General Info Date of Service: 05/01/21 Functional Status: Reports: Pain Controlled, Tolerating Diet, Ambulating, Urinating - Review of Systems General: Reports: No Symptoms Pulmonary: Reports: No Symptoms Cardiovascular: Reports: No Symptoms Gastrointestinal: Reports: No Symptoms Genitourinary: Reports: No Symptoms Musculoskeletal: Reports: No Symptoms Neurological: Reports: No Symptoms - General Info Date of Service: 05/01/21 - Patient Data Vital Signs - Most Recent: Last Vital Signs Temp 36.4 C 04/30/21 20:30 Pulse 83 04/30/21 20:30 Resp 14 04/30/21 20:30 BP 126/67 04/30/21 20:30 Pulse Ox 96 04/30/21 20:30 Weight - Most Recent: 86.954 kg I&O - Last 24 Hours: Intake & Output 04/30/21 04/30/21 05/01/21 14:59 22:59 06:59 Intake Total 240 Balance 240 Lab Results - Last 24 Hours: - Infant Interaction Infant Disposition, : in Room with Family Infant Interaction: Holding Feeding: Breastfed ; Nursed Well Support Person: - Recovery Exam Fundal Tone: Firm Fundal Level: 2 Fingerbreadths Below Umbilicus Fundal Placement: Midline Lochia Amount: Scant Lochia Color: Rubra/Red Perineum Description: Intact, Minimal Bruising/Swelling Episiotomy/Laceration: None Bladder Status: Voiding Urinary Elimination: Voided - Exam General: Alert, Oriented, Cooperative GI/Abdominal Exam: Soft, Non-Tender - Problem List & Annotations (1) 39 weeks gestation of SNOMED Code(s): 61327451 Code(s): Z3A.39 - 39 WEEKS GESTATION OF Status: Acute Current Visit: No (2) Vaginal delivery SNOMED Code(s): 109295742 Code(s): O80 - ENCOUNTER FOR FULL-TERM UNCOMPLICATED DELIVERY Status: Acute Current Visit: No - Problem List Review Problem List Initiated/Reviewed/Updated: Yes - My Orders Last 24 Hours: My Active Orders 04/30/21 01:46 BLOOD BANK HOLD SPECIMEN [BBK] Stat Resuscitation Status Routine 04/30/21 03:00 Acetaminophen [TylenoL] 650 mg PO Q4H PRN Benzocaine/Menthol [Dermoplast Pain Relief 20%-0.5% [place]] See Dose Instructions TOP ASDIRECTED PRN Docusate Sodium [Colace] 100 mg PO BID PRN Ibuprofen [Motrin] 600 mg PO Q6H PRN witch Melissa [Tucks] 1 pad TOP ASDIRECTED PRN Heat Therapy [OM.PC] PRN 04/30/21 03:00 Activity as Tolerated [RC] PER UNIT ROUTINE Vital Signs [RC] 03,,15,21 Assess Lochia [WOMSER] Per Unit Routine Assess Uterine Involution [WOMSER] Per Unit Routine Breast Pump [WOMSER] Per Unit Routine Ice Therapy [OM.PC] Per Unit Routine Perineal Care [OM.PC] Per Unit Routine Peripheral IV Discontinue [OM.PC] Routine Sitz Bath [OM.PC] Per Unit Routine 04/30/21 Breakfast Regular Diet [DIET] 04/30/21 09:00 Sertraline [Zoloft] 50 mg PO DAILY 05/01/21 02:14 Ready for Discharge [RC] PER UNIT ROUTINE 05/01/21 03:00 Heat Therapy [OM.PC] PRN - Assessment Assessment:: PPD#1 - Plan Plan:: * Routine cares * Breast feeding * Discharge today
--- NOTE | 2021-05-01 02:15 | PCM.DCSUM1 ---
Discharge Summary - Discharge Data Discharge Date: 05/01/21 Discharge Disposition: Home, Self-Care 01 Condition: Good - Referral to Home Health Primary Care Physician: Mami Patterson MD - Discharge Diagnosis/Problem(s) (1) 39 weeks gestation of SNOMED Code(s): 08636756 ICD Code: Z3A.39 - 39 WEEKS GESTATION OF Status: Acute Current Visit: No (2) Vaginal delivery SNOMED Code(s): 580953773 ICD Code: O80 - ENCOUNTER FOR FULL-TERM UNCOMPLICATED DELIVERY Status: Acute Current Visit: No - Patient Summary/Data Complications: None Consults: None Recommended Follow-up Testing/Procedures: Follow up in 3 weeks for check Hospital Course: 26 y/o at 39 5/7 wks who presented in labor. Underwent uncomplicated . See delivery note. did well. Was discharged home on PPD#1 - Patient Instructions Diet: Regular Diet as Tolerated Activity: As Tolerated Activity, Other: Pelvic rest for 6 weeks Driving: May Drive Today Showering/Bathing: May Shower Showering/Bathing, Other: May Bathe Notify Provider of: Fever, Increased Pain, Swelling and Redness, Drainage, Nausea and/or Vomiting - Discharge Plan *PRESCRIPTION DRUG MONITORING PROGRAM REVIEWED*: No *COPY OF PRESCRIPTION DRUG MONITORING REPORT IN PATIENT SANJU: No Home Medications: Home Meds Prenat 115/Iron Fum/Folic/Dss [ 19 Tablet] 1 each PO DAILY 08/04/19 [History] Docusate Sodium [Colace] 100 mg PO BID PRN cap 04/30/21 [Rx] Ibuprofen [Motrin] 600 mg PO Q6H PRN tablet 04/30/21 [Rx] Sertraline HCl [Zoloft] 1 tab PO DAILY 04/30/21 [History] Referrals: Mami Patterson MD [Primary Care Provider] - (3 weeks for check ) - Discharge Summary/Plan Comment DC Time >30 min.: No Total # of Minutes for Discharge Time: 15 - Patient Data Vitals - Most Recent: Last Vital Signs Temp 36.4 C 04/30/21 20:30 Pulse 83 04/30/21 20:30 Resp 14 04/30/21 20:30 BP 126/67 04/30/21 20:30 Pulse Ox 96 01/12/22 20:30 Weight - Most Recent: 86.954 kg I&O - Last 24 hours: Intake & Output 04/30/21 04/30/21 05/01/21 14:59 22:59 06:59 Intake Total 240 Balance 240 Lab Results - Last 24 hrs: Laboratory Results - last 24 hr 04/30/21 04/30/21 04/30/21 Range/Units 03:40 10:10 10:10 WBC 13.19 H (3.98-10.04) K/mm3 RBC 3.79 L (3.98-5.22) M/mm3 Hgb 12.0 (11.2-15.7) gm/dl Hct 36.1 (34.1-44.9) % MCV 95.3 H (79.4-94.8) fl MCH 31.7 (25.6-32.2) pg MCHC 33.2 (32.2-35.5) g/dl RDW Std Deviation 43.2 (36.4-46.3) fL Plt Count 145 L (182-369) K/mm3 MPV 10.1 (9.4-12.3) fl Neut % (Auto) 82.8 H (34.0-71.1) % Lymph % (Auto) 11.8 L (19.3-51.7) % [place] % (Auto) 4.8 (4.7-12.5) % Eos % (Auto) 0.1 L (0.7-5.8) Baso % (Auto) 0.2 (0.1-1.2) % Neut # (Auto) 10.93 H (1.56-6.13) K/mm3 Lymph # (Auto) 1.56 (1.18-3.74) K/mm3 [place]rill # (Auto) 0.63 H (0.24-0.36) K/mm3 Eos # (Auto) 0.01 L (0.04-0.36) K/mm3 Baso # (Auto) 0.02 (0.01-0.08) K/mm3 RPR Non-reactive (NONREACTIVE) SARS-CoV-2 RNA (CHRIS) Negative (NEGATIVE) Med Orders - Current: Current Medications Acetaminophen (Acetaminophen 325 Mg Tab) 650 mg PO Q4H PRN PRN Reason: mild pain or fever Benzocaine/Menthol (Benzocaine/Menthol 20%-0.5% [place] 78 Gm Cannister) 0 gm TOP ASDIRECTED PRN PRN Reason: Perineal Comfort Measure Last Admin: 04/30/21 04:09 Dose: 1 can Documented by: Docusate Sodium (Docusate Sodium 100 Mg Cap) 100 mg PO BID PRN PRN Reason: Constipation Ibuprofen (Ibuprofen 600 Mg Tab) 600 mg PO Q6H PRN PRN Reason: Mild pain or fever Last Admin: 04/30/21 21:05 Dose: 600 mg Documented by: Sertraline HCl (Sertraline 50 Mg Tab) 50 mg PO DAILY [facility] Last Admin: 04/30/21 09:33 Dose: 50 mg Documented by: Sophia Carrizales (Sophia Carrizales Medicated Pads 40/Jar) 1 pad TOP ASDIRECTED PRN PRN Reason: Perineal Comfort Measure Last Admin: 04/30/21 04:09 Dose: 1 tub Documented by: Discontinued Medications Oxytocin/Lactated Ringer's (Pitocin In Lr 10 Units/1,000 Ml) 10 unit in 1,000 mls @ 500 mls/hr IV .CONTINUOUS [facility] Lactated Ringer's (Ringers, Lactated) 1,000 mls @ 100 mls/hr IV ASDIRECTED [facility] Lidocaine HCl (Lidocaine 1% 50 Ml Mdv) 20 ml INJECT ONETIME ONE Stop: 04/30/21 01:47 Last Admin: 04/30/21 05:47 Dose: Not Given Documented by: Nalbuphine HCl (Nalbuphine 10 Mg/1 Ml Vial) 10 mg IVPUSH Q2H PRN PRN Reason: Pain Ondansetron HCl (Ondansetron 4 Mg/2 Ml Sdv) 4 mg IVPUSH Q4H PRN PRN Reason: Nausea/Vomiting Oxytocin (Oxytocin 10 Units/1 Ml Sdv) Confirm Administered Dose 10 unit .ROUTE .STK-MED ONE Stop: 04/30/21 02:14 Last Admin: 04/30/21 02:19 Dose: 10 unit Documented by: Sodium Chloride (Sodium Chloride 0.9% 10 Ml Syringe) 10 ml FLUSH 0900,2100 [facility]
[2021-05-01] MEDS: Sertraline 50 MG Tab PO SCH (12:05)
[2021-05-01 12:55] VITALS: BP 123/67; PULSE 88
== END 2021-05-01 11:15 | disposition home or self-care (01) | DRG 560 ==
LOC: JD.OBCHECK 01:36 → JD.OB 01:46 → JD.OBCHECK 01:47 → JD.OB 01:47 → OBSVTOIN 02:09 → JD.OB 02:10
PROVIDERS: ADMIT Obstetrics & Gynecology; ATTEND Obstetrics & Gynecology
PROC: 10E0XZZ Delivery of Products of Conception, External Approach (ICD-10-PCS; principal; 2021-04-30)
DX: O69.81X0 Labor and delivery complicated by cord around neck, without compression, not applicable or unspecified (principal); Z3A.39 39 weeks gestation of pregnancy; Z37.0 Single live birth; Z20.822 Contact with and (suspected) exposure to COVID-19
CPT/HCPCS: 36415; 59025; 59409; 85025; 86592; A9270-GY; J2590; U0002